=== PATIENT | female | born 1970 | race African-American/Black ===

== ENCOUNTER 2017-12-21 21:57 | Emergency (ER) | payer OTHER ==
[~2017-12-21] VITALS: Ht 165.1 cm; Wt 74.4 kg
[2017-12-21 22:39] LABS: Eosinophils # (auto) 0.1 uL; Mean Corpuscular Hemoglobin 26.9 pg (28.0-32.0); Monocytes # (auto) 0.6 uL; Monocytes % (auto) 8.6 % (0.0-12.0); Red Blood Cells 4.37 10^6/uL (4.0-5.20)
[2017-12-21 22:41] LABS: Basophils # (auto) 0 uL; Basophils % (auto) 0.6 % (0.0-2.0); Eosinophils % (auto) 1.9 % (0.0-7.0); Hematocrit 35.6 % (36.0-46.0); Hemoglobin 11.7 g/dL (12.2-16.2); Lymphocytes # (auto) 2.8 uL; Lymphocytes % (auto) 39.3 % (10.0-50.0); Mean Corpuscular Hgb Conc. 32.9 g/dL (32.0-36.0); Mean Corpuscular Volume 81.6 fL (80.0-100.0); Neutrophils # (auto) 3.6 uL; Neutrophils % (auto) 49.6 % (37.0-80.0); Nucleated Red Blood Cells % 0.2 %; Platelet Count (auto) 223 10^3/uL (140-450); Red Cell Distribution Width 15.5 % (11.8-14.3); White Blood Cell 7.2 10^3/uL (4.4-10.8)
[2017-12-21 22:56] LABS: INR 1.06 (0.9-1.15)
[2017-12-21 22:57] LABS: Alanine Aminotransferase 22 U/L (13-56); Albumin 3.8 g/dL (3.4-5.0); Anion Gap 8 (5-15); Aspartate Aminotransferase 18 U/L (15-37); BUN/Creatinine Ratio 6.6; Blood Urea Nitrogen 9 mg/dL (7-18); Calcium 8.5 mg/dL (8.5-10.1); Carbon Dioxide 25 mmol/L (21-32); Chloride 106 mmol/L (98-107); GFR African American 54 mL/min; GFR Non-African American 44 mL/min; Glucose 86 mg/dL (74-106); Magnesium 2.3 mg/dL (1.6-2.6); Potassium 3.8 mmol/L (3.5-5.1); Sodium 139 mmol/L (136-145)
[2017-12-21 23:01] LABS: Alkaline Phosphatase 79 U/L (45-117); Bilirubin, Total 0.5 mg/dL (0.2-1.0); Total Protein 7.7 g/dL (6.4-8.2)
[2017-12-21] MEDS ORDERED: SODIUM CHLORIDE 0.9% 1,000 ML IV ONE (23:15)
[2017-12-21] MEDS ORDERED: LEVOFLOXACIN 750MG 150 ML IV ONE (23:15)
[2017-12-22 00:11] LABS: Urine Bacteria MOD /hpf (None Seen); Urine Blood Negative /uL (Negative); Urine Mucus FEW (None Seen); Urine WBC 70 /hpf (0 - 5)
[2017-12-22 02:45] VITALS: BP 109/74
== END 2017-12-22 03:31 | disposition home or self-care (01) ==
LOC: ER 21:57
DX: J20.9 Acute bronchitis, unspecified (principal); F17.210 Nicotine dependence, cigarettes, uncomplicated; F12.10 Cannabis abuse, uncomplicated
CPT/HCPCS: 36415; 71045; 80053; 81001; 81025; 83735; 83880; 84443; 84484; 85025; 85379; 85610; 85730; 93005; 94761; 96365; 96366; 99285; J1956; J7030

== ENCOUNTER → 2018-10-29 | Outpatient (CLI) | payer OTHER ==
[~2018-10-29] MED LIST: ALBUTEROL SULF 2.5 MG/0.5ML(0.5%) NEB SOLN ONE
== END | disposition home or self-care (01) ==
LOC: RT 08:39
PROVIDERS: ATTEND Internal Medicine Pulmonary Disease
DX: J43.9 Emphysema, unspecified (principal)
CPT/HCPCS: 94010; J7611

== ENCOUNTER 2023-06-06 08:44 | Emergency (ER) | payer OTHER ==
[~2023-06-06] VITALS: Ht 165.1 cm; Wt 85.2 kg
[2023-06-06 09:12] VITALS: BP 145/79; PULSE 66; RESP 18; TEMP 98.4; O2SAT 99
[2023-06-06] MEDS: HYDROcodone-ACET 10/325MG TAB PO ONE (10:33)
[2023-06-06 11:25] LABS: Urine Bacteria NONE SEEN /hpf (None Seen); Urine Blood Negative /uL (Negative); Urine Clarity HAZY (Clear); Urine Color Colorless (Yellow); Urine Protein, UAD Negative (Negative); Urine Specific Gravity 1.021 (1.001-1.035); Urine Urobilinogen Normal (Negative); Urine WBC 1 /hpf (0 - 5); Urine pH 5.5 (5.0-9.0)
[2023-06-06] MEDS ORDERED: HYDR-4798 PO (11:36)
[2023-06-06] MEDS ORDERED: LIDO5CRE14 EX (11:36)
== END 2023-06-06 11:46 | disposition home or self-care (01) ==
LOC: ER 08:44
DX: G89.29 Other chronic pain (principal); M54.50 Low back pain, unspecified; F17.210 Nicotine dependence, cigarettes, uncomplicated; F12.10 Cannabis abuse, uncomplicated
CPT/HCPCS: 81001

== ENCOUNTER 2024-03-21 10:12 | Day surgery (SDC) | payer OTHER ==
[~2024-03-21] VITALS: Ht 165.1 cm; Wt 86.2 kg
[~2024-03-21 10:12] MED LIST changes: -ALBUTEROL SULF 2.5 MG/0.5ML(0.5%) NEB SOLN ONE; +ATOR20TA PO; +CETI-176 PO; +CYCL-839 PO; +GABA800T97 PO; +METH-1182 PO; +METH100035 IJ; +METO-289 PO; +MONT10TA23 PO; +RIVA20TA PO; +TRAZ-228 PO
[2024-03-21] MEDS ORDERED: LIDOCAINE 2%HCL (LOCAL ANESTH.) INJ 10ml MDV ONE (11:34)
[2024-03-21] MEDS ORDERED: PROPOFOL 10 MG/ML 20 ML IV ONE ×3 (11:55→12:29)
[2024-03-21 12:36] VITALS: PULSE 102; RESP 15; TEMP 98; O2SAT 100
--- NOTE | 2024-03-21 12:38 | DVHHP2 ---
GI H&P Pre-Op Assessment Date: 03/21/24 Chief complaint: anemia HPI: per clinic note Past medical history: per clinic note Past surgical history: per clinic note Family history: per clinic note Physical exam: General: NAD, AAOX3 HEENT: PERRL, no scleral icterus, normal hearing, gums without lesions or bleeding, oropharynx clear without erythema or exudate. Neck: Supple without enlargement of the thyroid, or lymphadenopathy. Chest: Normal size and shape, no tenderness, lung jones clear to auscultation and percussion, nonlabored breathing. Heart: RRR, no murmur Abdomen: non-distended, no tenderness to palpation, +BS, no hepatosplenomegaly Extremities: no edema Neurological: CN II-XII intact, sensation intact in all extremities, 5+ strength in all extremities Skin: No rashes, No jaundice Assessment: - anemia Plan: - EGD - Colonoscopy - Risks (bleeding, infection, perforation, reaction to sedation medications and cardiopulmonary arrest) and benefit of the procedure were explained to patient. Patient agrees to undergo the procedure. EDISON GUTIERREZ MD Mar 21, 2024 12:38
--- NOTE | 2024-03-21 12:40 | DVHOP2 ---
Operative Report DATE OF OPERATION: 03/21/24 PROCEDURE: Colonoscopy. PREOPERATIVE INDICATION: The patient is a 53 -year-old female undergoing colonoscopy for anemia. POSTOPERATIVE DIAGNOSES: 1. Diffuse diverticulosis. 2. Internal hemorrhoids. PROCEDURE PERFORMED BY: John Galvan M.D. SCOPE: Olympus videocolonoscope. ASA CLASS: 3 PREOPERATIVE MEDICATIONS: MAC with Lucien ELECT EQUIP MAINT ENG PROCEDURE IN DETAIL: After obtaining an informed consent, the patient was placed on left lateral decubitus position. She was then sedated with the above medications. A rectal examination was performed that was normal. The colonoscope was then passed through the anus into the rectosigmoid and through the descending, transverse, and ascending colon up to the cecum with visualization of the appendiceal orifice, base of the cecum and the ileocecal valve. NO mass or polyp was observed. There was diffuse diverticulosis. There were internal hemorrhoids. The colonoscope was then withdrawn. The patient tolerated the procedure well without difficulty. WITHDRAWAL TIME: 6 minutes QUALITY OF THE PREP: [place] Bowel Prep score: 6 COMPLICATIONS : None SPECIMENS: None DISPOSITION: D/C to home PLAN: 1. Repeat colonoscopy in 10 years for colon cancer screening. JOHN GALVAN MD Mar 21, 2024 12:40
--- NOTE | 2024-03-21 12:42 | DVHOP2 ---
Operative Report DATE OF OPERATION: 03/21/24 PROCEDURE: Upper Endoscopy. PREOPERATIVE INDICATION: The patient is a 53 -year-old female undergoing endoscopy for anemia. POSTOPERATIVE DIAGNOSES: 1. Mild gastritis PROCEDURE PERFORMED BY: John Galvan SCOPE: Olympus videoendoscope. ASA CLASS: 3 PREOPERATIVE MEDICATIONS: MAC with Lucien OLGUIN PROCEDURE IN DETAIL: After obtaining an informed consent, the patient was placed on left lateral decubitus position. The patient was then sedated with the above medications. A bite block was placed between her teeth. The endoscope was then passed through the oropharynx, into the esophagus, and through the stomach and pylorus up to the second and third part of the duodenum. The duodenum was normal in appearance. There was mild gastritis. Gastric biopsies were obtained. The GEJ was normal in appearance at 37 cm. The esophagus was normal in appearance. The endoscope was then withdrawn. The patient tolerated the procedure well without difficulty. COMPLICATIONS : None SPECIMENS: None DISPOSITION: D/C to home PLAN: 1. Await for biopsy result JOHN GALVAN MD Mar 21, 2024 12:42
--- NOTE | 2024-03-21 12:43 | DVHDS2 ---
Physician Discharge Progress N Final Diagnosis: mild gastritis diverticulosis, internal hemorrhoids Operations or Procedures: Operations or Procedures EGD with biopsy colonoscopy Condition on Discharge: Good Disposition: Home Discharge Instructions: Diet: Regular Activity: No Restrictions, As Tolerated Medications: resume previous home medications Follow Up Care: Discharge Statement: "Patient was advised to return to the ER or call 911 if any headaches, dizziness, shortness of breath, chest pain, abdominal pain, bleeding, fevers, or worsening of medical condition. Patient was counseled about treatment plan, medications, possible side effects, patientverbalized understanding. All questions were answered to the best of my ability. This discharge took greater then 30 minutes in planning, reviewing documentation, counseling the patient, and discussing with other team members." EDISON GUTIERREZ MD Mar 21, 2024 12:43
[2024-03-21 13:05] VITALS: BP 122/84; PULSE 72; RESP 12; O2SAT 96
== END 2024-03-21 13:15 | disposition home or self-care (01) ==
LOC: GI 10:12
PROVIDERS: ATTEND Internal Medicine Gastroenterology
DX: D64.9 Anemia, unspecified (principal); K57.30 Diverticulosis of large intestine without perforation or abscess without bleeding; K64.8 Other hemorrhoids; K29.50 Unspecified chronic gastritis without bleeding; I10 Essential (primary) hypertension; E78.5 Hyperlipidemia, unspecified; Z86.718 Personal history of other venous thrombosis and embolism; Z79.899 Other long term (current) drug therapy; Z79.01 Long term (current) use of anticoagulants; Z98.891 History of uterine scar from previous surgery; Z87.891 Personal history of nicotine dependence
CPT/HCPCS: 43239; 45378; 88305; 88312; 88342; J2003; J2704; J7030